=== PATIENT | female | born 1975 | race Caucasian/White ===

== ENCOUNTER 2025-07-14 09:22 | Outpatient (CLI) | payer OTHER | END 2025-07-14 09:23 | disposition home or self-care (01) | LOC: ULT 09:22 | PROVIDERS: ATTEND Registered Nurse | DX: M79.604 Pain in right leg (principal); I70.203 Unspecified atherosclerosis of native arteries of extremities, bilateral legs | CPT/HCPCS: 93923; 93970 ==